=== PATIENT | male | born 1945 | race Caucasian/White ===

== ENCOUNTER 2023-04-29 06:04 | Day surgery (SDC) | payer MEDICARE, OTHER ==
[2023-04-29] VITALS (10 sets, daily range): BP systolic 120–170; BP diastolic 63–87; PULSE 84–106; RESP 10–20; TEMP 98; O2SAT 92–96
[~2023-04-29] VITALS: Ht 177.8 cm; Wt 116.6 kg
[2023-04-29] MEDS ORDERED: diphenhydrAMINE 25mg capsule PO PRN (06:40)
[2023-04-29] MEDS ORDERED: sodium bicarbonate 1meq/ml syr 150 ML in dextrose 5%-water 1,000 ML IV SCH (06:40)
[2023-04-29] MEDS ORDERED: normal saline 1,000 ML IV SCH (06:40)
[2023-04-29] MEDS ORDERED: LIDOcaine 1% (10mg/ml) 2ml vial ONE (06:53)
[2023-04-29] MEDS ORDERED: iohexol 350 MG/ML 50ML vial IV ONE ×4 (06:54→09:13)
[2023-04-29] MEDS ORDERED: midazolam 1 mg/ML 2ml injection ONE ×3 (06:54→09:13)
[2023-04-29] MEDS ORDERED: verapamil 2.5 mg/ml inj IV ONE (06:54)
[2023-04-29] MEDS ORDERED: iohexol 350MG/ML 100ml bottle IV ONE ×3 (06:54→08:31)
[2023-04-29] MEDS ORDERED: heparin 1,000unit/ml 10ml vial 10 ML ONE ×2 (06:54→08:53)
[2023-04-29] MEDS ORDERED: nitroGLYCERIN 500mcg/5mL D5W 5 ML IV ONE ×2 (06:55→08:59)
[2023-04-29] MEDS ORDERED: fentaNYL/PF 50MCG/1 ML 2ML syringe ONE ×2 (06:55→09:18)
[2023-04-29 07:05] LABS: BASOPHILS # (AUTO) 0.1 X10'3 (0-0.2); BASOPHILS % (AUTO) 1.4 % (0-1); EOSINOPHILS # (AUTO) 0.2 X10'3 (0-0.9); EOSINOPHILS % (AUTO) 3.2 % (0-6); HEMATOCRIT 40.9 % (42.0-52.0); HEMOGLOBIN 13.8 g/dl (14.0-17.9); LYMPHOCYTES # (AUTO) 0.8 X10'3 (1.1-4.8); LYMPHOCYTES % (AUTO) 13.4 % (21-51); MEAN CORPUSCULAR HEMOGLOBIN 30.6 PG (27.0-31.0); MEAN CORPUSCULAR HGB CONC 33.8 g/dL (33.0-36.5); MEAN CORPUSCULAR VOLUME 90.5 FL (78-98); MEAN PLATELET VOLUME 6.7 FL (7.4-10.4); MONOCYTES # (AUTO) 0.6 X10'3 (0-0.9); MONOCYTES % (AUTO) 9.5 % (2-12); NEUTROPHILS # (AUTO) 4.4 X10'3 (1.8-7.7); NEUTROPHILS % (AUTO) 72.5 % (42-75); PLATELET COUNT 300 X10'3 (140-440); RED BLOOD COUNT 4.52 X10'6 (4.70-6.10); RED CELL DISTRIBUTION WIDTH 13.7 % (11.5-14.5)
[2023-04-29] MEDS ORDERED: GABA300T25 PO (07:05)
[2023-04-29] MEDS ORDERED: SEMA1PEN3 SUBCUT (07:05)
[2023-04-29] MEDS ORDERED: PANT40TA54 PO (07:05)
[2023-04-29] MEDS ORDERED: METO25TA6 PO (07:05)
[2023-04-29] MEDS ORDERED: CLOP75TA34 PO (07:05)
[2023-04-29] MEDS ORDERED: INSU100V41 SQ (07:05)
[2023-04-29] MEDS ORDERED: BUME0.5T6 PO (07:05)
[2023-04-29] MEDS ORDERED: ATOR40TA72 PO (07:05)
[2023-04-29] MEDS ORDERED: LISI5TAB22 PO (07:05)
[2023-04-29] MEDS ORDERED: SOLI10TA7 PO (07:05)
[2023-04-29] MEDS ORDERED: POTA-206 PO (07:05)
[2023-04-29 07:19] LABS: ALBUMIN 3.5 G/DL (3.4-5.0); ANION GAP 12 (8-16); BLOOD UREA NITROGEN 23 MG/DL (7-18); BUN/CREATININE RATIO 20.5 (10.0-20.0); CALCIUM 9.7 MG/DL (8.5-10.1); CHLORIDE 98 MMOL/L (99-107); CREATININE 1.12 MG/DL (0.60-1.10); GLUCOSE 145 MG/DL (70-104); MAGNESIUM 1.9 MG/DL (1.5-2.4); SODIUM 135 MMOL/L (135-145); TOTAL CARBON DIOXIDE 25.2 MMOL/L (24-32); eCRCL 56 ML/MIN; eGFR 63 ML/MIN
[2023-04-29 07:23] LABS: APTT 25 SECONDS (22-32); INR 0.9 INR; PROTHROMBIN TIME 10.2 SECONDS (9.0-12.0)
[2023-04-29] MEDS ORDERED: LIDOcaine 1% 30ml preserv. free vial ONE (08:02)
[2023-04-29] MEDS ORDERED: clopidogrel 300mg tablet ONE (08:21)
[2023-04-29] MEDS ORDERED: hydrALAZINE 20mg/ml inj. IV ONE (09:16)
[2023-04-29] MEDS ORDERED: normal saline 1000ml 1,000 ML IV SCH (11:25)
[2023-04-29] MEDS ORDERED: ondansetron/PF 4mg/2ml inj IV PRN (11:25)
[2023-04-29] MEDS ORDERED: proCHLORperazine 10 MG/2 ml inj IV PRN (11:30)
[2023-04-29] MEDS ORDERED: HYDROcodone/acetaminophen 10/325mg tab PO PRN (11:30)
[2023-04-29] MEDS ORDERED: HYDROcodone/acetaminophen 5mg/325mg tablet PO PRN (11:30)
== END 2023-04-29 13:30 | disposition home or self-care (01) ==
LOC: SSTAY O 06:04
PROVIDERS: ATTEND Internal Medicine Cardiovascular Disease
DX: I25.10 Atherosclerotic heart disease of native coronary artery without angina pectoris (principal); I10 Essential (primary) hypertension; E78.5 Hyperlipidemia, unspecified; E11.9 Type 2 diabetes mellitus without complications; Z79.4 Long term (current) use of insulin; Z79.01 Long term (current) use of anticoagulants; Z79.899 Other long term (current) drug therapy
CPT/HCPCS: 36415; 80048; 82948; 83735; 85025; 85610; 85730; 93005; 93454; 99152; 99153; A6258; C1874; C9600; J0360; J1644; J2250; J3010; J3490; J7030; J7070; Q9967; A6402; A6449; C1725; C1751; C1760; C1769; C1892; C1894